=== PATIENT | female | born 1990 | race Caucasian/White ===

== ENCOUNTER 2022-02-19 20:41 | Emergency (ER) | payer BC, OTHER ==
[~2022-02-19] VITALS: Ht 152.4 cm; Wt 45.4 kg
[~2022-02-19 20:41] MED LIST: CITA10TA17; NORE-97
--- NOTE | 2022-02-19 20:50 | NUR ---
GISELA 839 FROM HOME FOR C/O SEVERE CRAMP MORE ON THE LEFT SIDE. LMP: TODAY. PT A/OX4. TOLERATING R/A WELL WITH NO RESP DISTRESS. PT AMBULATORY WITHS TEADY GAIT. SAFETY MEASURES IN PLACE.
--- NOTE | 2022-02-19 20:57 | NUR ---
GISELA 839 FROM HOME FOR C/O SEVERE CRAMP MORE ON THE LEFT SIDE. LMP: TODAY. PT AMBULATORY TO THE BATHROOM. URINE SAMPLE OBTAINED AND PT WAS PLACED IN BED 16 ER.
--- NOTE | 2022-02-19 20:57 | NUR ---
URINE COLLECTED AND SENT TO LAB
[2022-02-19] MEDS ORDERED: KETOROLAC TROMETHAMINE INJ 30 MG/ML VIAL IV ONE (21:00)
[2022-02-19] MEDS ORDERED: IV NS 0.9% 1,000 ML BAG IV ONE (21:00)
--- NOTE | 2022-02-19 21:00 | NUR ---
BLOOD COLLECTED AND SENT TO LAB
[2022-02-19] MEDS ORDERED: KETOROLAC TROMETHAMINE INJ 30 MG/ML VIAL ONE (21:01)
[2022-02-19 21:37] LABS: BASOPHILS % (AUTO) 0.4 % (0.0-2.0); EOSINOPHILS % (AUTO) 0.4 % (0.0-6.0); HEMATOCRIT 34 % (33-45); HEMOGLOBIN 11.4 g/dL (11.5-14.8); LYMPHOCYTES # (AUTO) 1.4 K/uL (0.8-4.8); MEAN CORPUSCULAR HGB CONC 34 g/dl (31.0-36.0); MEAN CORPUSCULAR VOLUME 93 fL (82-100); MONOCYTES # (AUTO) 0.7 K/uL (0.1-1.30); MONOCYTES % (AUTO) 7.5 % (2.0-12.0); NEUTROPHILS # (AUTO) 6.6 K/uL (1.8-8.9); NEUTROPHILS % (AUTO) 75.7 % (43.0-81.0); PLATELET COUNT (AUTO) 244 K/uL (150-450); RED BLOOD CELL COUNT(AUTO) 3.62 MIL/uL (4.0-5.2); WHITE BLOOD COUNT (AUTO) 8.7 K/uL (4.3-11.0)
--- NOTE | 2022-02-19 21:40 | NUR ---
US AT BEDSIDE
[2022-02-19 22:02] LABS: BILIRUBIN,URINE NEGATIVE (NEGATIVE); COLOR,URINE YELLOW (YELLOW); LEUKOCYTE ESTERASE ,URINE NEGATIVE (NEGATIVE); NITRITE, URINE NEGATIVE (NEGATIVE); PH,URINE 7.5 (5.0-8.0); PROTEIN,URINE TRACE mg/dl (NEGATIVE); UGLUCOSE NEGATIVE (NEGATIVE)
[2022-02-19 22:06] LABS: BACTERIA,URINE None seen /HPF (None Seen); MUCUS,URINE Few /LPF (None Seen); RBC,URINE 51-80 /HPF (0-2); WBC,URINE 0-2 /HPF (0-3)
[2022-02-19 22:23] LABS: ALBUMIN 3.8 g/dL (3.4-5.0); BILIRUBIN,DIRECT 0.1 mg/dL (0.0-0.2); BILIRUBIN,TOTAL 0.4 mg/dL (0.2-1.0); CALCIUM, SERUM 8.1 mg/dL (8.5-10.1); CREATININE 0.7 mg/dL (0.6-1.3); POTASSIUM 3.6 mmol/L (3.5-5.1); TOTAL PROTEIN, SERUM 6.6 g/dL (6.4-8.2)
[2022-02-19 22:35] VITALS: BP 110/60
--- NOTE | 2022-02-19 22:35 | NUR ---
Patient discharged to home in stable condition. Written and verbal after care instructions given. Patient verbalizes understanding of instruction.
== END 2022-02-19 22:35 | disposition home or self-care (01) ==
LOC: ER 20:44
DX: N93.9 Abnormal uterine and vaginal bleeding, unspecified (principal); F41.9 Anxiety disorder, unspecified; Z60.2 Problems related to living alone; Z79.899 Other long term (current) drug therapy
CPT/HCPCS: 99284; 96374; 76856; 96361; 85025; 80048; 87086; 83690; 80076; 84703; 81001; 36415; 86850; 84702; J1885; J7030